=== PATIENT | female | born 1990 | race Caucasian/White ===

== ENCOUNTER 2020-09-23 06:26 | Day surgery (SDC) | payer OTHER ==
[2020-09-22 16:05] LABS: Absolute Lymphocytes (CBC) 2.2 K/uL (0.7-4.9); Basophils % 0.8 % (0-1.3); Hematocrit 44.8 % (36.0-45.0); Lymphocytes % 23.8 % (15.3-44.8); RBC Red Blood Cell Count 5.12 M/uL (3.86-4.86)
[2020-09-22 16:08] LABS: Specific Gravity 1.015 (1.005-1.030); Urine Appearance CLOUDY (Clear); Urine Bilirubin NEGATIVE (Negataive); Urine Blood TRACE (Negative); Urine Color YELLOW (Yellow); Urine Glucose NEGATIVE (Negative); Urine Protein NEGATIVE (Negative); Urine Specific Gravity 1.015 (1.005-1.030); Urine pH 6.5 (5.0-7.0)
[2020-09-22 16:28] LABS: Urine Microscopic Reflex ORDER UMIC
[2020-09-22 16:29] LABS: Urine Bacteria <20 /HPF (<20); Urine RBC <5 /HPF (NONE SEEN)
[2020-09-22 16:34] LABS: Protime INR 0.98
[2020-09-23] MEDS ORDERED: CEFAZOLIN/SWI 1gm 1 GM/10 ML SYR ONE (07:11)
[2020-09-23] MEDS ORDERED: Ringers Lactate 1,000 ML IV ONE (07:11)
[2020-09-23] MEDS ORDERED: MIDAZOLAM HCL 2 MG/2 ML INJ ONE (07:13)
[2020-09-23] MEDS ORDERED: propofoL 200 MG/20 ML VIAL IV ONE (07:13)
[2020-09-23] MEDS ORDERED: ONDANSETRON 4 MG/2 ML VIAL ONE (07:14)
[2020-09-23] MEDS ORDERED: LIDOCAINE 2% MPF 5 ML VIAL ONE (07:14)
[2020-09-23] MEDS ORDERED: FENTANYL CITR 100 MCG/2 ML ONE ×3 (07:14→07:16)
[2020-09-23] MEDS ORDERED: dexAMETHasone 10 MG/ML VIAL ONE (07:14)
[2020-09-23] MEDS ORDERED: SILVER NITRATE 1 APPL TOP ONE (07:16)
[2020-09-23] MEDS ORDERED: LIDOCAINE 1% MPF 30 ML VIAL ONE (07:35)
[2020-09-23] MEDS: LIDOCAINE 1% W/EPI 1:100,000 MDV 20 ML VIAL ONE ×2 (07:45→07:59)
[2020-09-23] MEDS ORDERED: GLYCOPYRROLATE 0.2 MG/ML SYR ONE (08:15)
[2020-09-23 08:18] VITALS: O2SAT 100
[2020-09-23] MEDS ORDERED: KETOROLAC 30 MG/ML INJ ONE (08:30)
--- NOTE | 2020-09-23 09:03 | PREOPHP ---
Date of Admission: 09/23/2020 History Of Present Illness: This is a 29-year-old female with moderate to severe cervical dysplasia. Options have been discussed including hysterectomy versus LEEP procedure. Patient wishes to procee d with LEEP procedure. Complications including infection, injury to the bladder, severe bleeding, bl ood clots in the legs, anesthetic complications discussed. The patient knows well this does not cons titute all the possible problems that could occur during or following surgery and knows that this is not a guarantee if the same problem could not come back in the future. She has had 2 of the 3 [place] shots, needs to finish the third one sometime in the near future. Family History: Diabetes in one of the grandparents. Hypertension in one of the grandparents and he r mother. Father from myocardial infarction. Allergies: THE PATIENT HAS NO ALLERGIES. Medications: Not taking any kind of medications prior to admission. Physical Examination: HEENT: Clear. Pupils equal, round, reactive to light and accommodation. Conjunctivae well perfused . No oral, lingual, or buccal lesions. Chest and Lungs: Clear. HEART: Without murmurs, thrills, heaves, or rubs. BREASTS: Not examined today but in the past without masses. Abdomen: Without organomegaly and uterus is normal size. Both adnexa are clear. Extremities: Clear without edema, cyanosis, or clubbing. Assessment And Plan: We will proceed with Loop electrosurgical excision procedure tomorrow. Full pr eop counseling. SUREKHA/GOGO Voice ID: [id number]
[2020-09-23 09:45] VITALS: TEMP 97.9
[2020-09-23 10:05] VITALS: BP 114/70
--- NOTE | 2020-09-23 16:51 | DS ---
Date of Discharge: 09/23/2020 Hospital Course: The patient underwent a LEEP procedure with removal of specimen, which will be sent to pathology. The patient knows that depending upon the pathology, we may be successful in removing the lesion or if the margins are not clear, we may have to do another procedure. 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 The patie nt is aware of all this situation. General anesthetic was employed. Blood loss was less than 10 mL. A 1 g of Ancef was given for prophylaxis. She will be observed for the next 2 hours and then dismi ssed to return to my office in 1 week for pathology discussion. She knows not to have any intravagin al penetration for at least 3 weeks, to report any temperature elevation, severe pain, bleeding probl ems, or any other difficulties. She was given 1 g of Ancef prior to the procedure. Diagnoses: At this point is ultihudn-bl-rbtlmu cervical dysplasia, LEEP procedure performed. Pathol negrita pending. SUREKHA/GOGO Voice ID: [id number] Report ID: [id number]
--- NOTE | 2020-09-23 16:54 | OP ---
Surgeon: Sergio Thomas MD Procedure In Detail: Jayne Garcia is a 30-year-old female with pnmigpes-ow-egngpy cervical dysplasia. Options discussed including LEEP procedure, vaginal hysterectomy, the patient chose LEEP procedure. Infection; blood loss; anesthetic complications; injury to internal organs all discussed the risks and complications. 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 General anesthetic endotracheal intubation. The patient was prepped and draped, placed in the dorsal lithotomy position. A speculum was inserted. The cervix was injected on numerous places with lidocaine with epinephrine. Insulated speculum was placed. The LEEP specimen was removed without difficulty. Then, ball cautery was applied to the cervix with good effect. This was followed by _Astrygen gel. Blood loss was less than 10 mL. The surgical area was observed for at least 10 minutes. No bleeding was seen whatsoever. Procedure was discontinued. The patient was sent to the recovery room in good condition. Diagnosis: Etuvsrjg-ws-hdkrqu cervical dysplasia. LEEP procedure performed. Pathology of course pending. SUREKHA/GOGO Voice ID: [id number] Report ID: [id number]
== END 2020-09-23 10:10 | disposition home or self-care (01) ==
LOC: OR 06:26
PROVIDERS: ATTEND Specialist
PROC: 0UBC7ZX Excision of Cervix, Via Natural or Artificial Opening, Diagnostic (ICD-10-PCS; principal; 2020-09-23 07:30)
DX: D06.0 Carcinoma in situ of endocervix (principal); D06.1 Carcinoma in situ of exocervix; Z20.822 Contact with and (suspected) exposure to COVID-19
CPT/HCPCS: 87088; 85025; 87086; 36415; 86900; 86850; 81025; 85610; 86901; 88307; 85730; 57460; U0003; J2704; J2250; J3010; J1100; J0690; J7120; J2405; 81003; 81015; 88305